=== PATIENT | female | born 1995 | race Caucasian/White ===

== ENCOUNTER 2021-11-28 15:27 | Outpatient (CLI) | payer BC, SELFPAY ==
[2021-11-28 21:46] LABS: HCG Qualitative Serum* Negative (Negative)
== END 2021-11-28 15:28 | disposition home or self-care (01) ==
LOC: FRMREF 15:28
PROVIDERS: PCP Family Medicine; Visit Provider Family Medicine
DX: Z01.419 Encounter for gynecological examination (general) (routine) without abnormal findings (principal); Z30.9 Encounter for contraceptive management, unspecified
CPT/HCPCS: 84703

== ENCOUNTER 2021-11-30 14:50 | Outpatient (CLI) | payer BC, SELFPAY ==
[2021-11-30 21:31] LABS: Chloride* 102 mmol/L (96-114)
[2021-11-30 21:32] LABS: Albumin* 4.8 g/dL (3.3-5.0); Sodium* 139 mmol/L (135-149)
[2021-11-30 21:33] LABS: Potassium* 3.6 mmol/L (3.6-5.1)
[2021-11-30 21:35] LABS: Alanine Aminotransferase* 16 U/L (4-35); Alkaline Phosphatase* 47 U/L (40-150); Aspartate Amino Transferase* 18 U/L (12-35); Bilirubin Total* 0.7 mg/dL (0.1-1.5); Blood Urea Nitrogen* 8 mg/dL (5-24); Calcium* 9.4 mg/dL (8.4-10.6); Carbon Dioxide* 23 mmol/L (20-32); Creatinine* 0.7 mg/dL (0.5-1.5); Estimated Glomerular Filt Rate 123 ml/min; Glucose* 84 mg/dL (60-115); Lipase* 56 U/L (23-300); Total Protein* 7.8 g/dL (6.0-8.3)
[2021-11-30 21:38] LABS: Amphetamine Screen Urine Negative (Negative); Barbiturate Screen Urine Negative (Negative); Benzodiazepines Screen Urine Negative (Negative); Cannabinoid Screen Urine POSITIVE (Negative); Cocaine Screen Urine Negative (Negative); Methadone Screen Urine Negative (Negative); Methamphetamines Screen Urine Negative (Negative); Opiate Screen Urine Negative (Negative); Oxycodone Screen Urine Negative (Negative); Phencyclidine Screen Urine Negative (Negative); Tricyclic Antidepressant Urine Negative (Negative)
== END 2021-11-30 14:51 | disposition home or self-care (01) ==
PROVIDERS: PCP Family Medicine; Visit Provider Family Medicine
DX: R11.2 Nausea with vomiting, unspecified (principal); N64.4 Mastodynia; R53.83 Other fatigue; R42 Dizziness and giddiness; F41.9 Anxiety disorder, unspecified; F32.2 Major depressive disorder, single episode, severe without psychotic features; F12.20 Cannabis dependence, uncomplicated; R35.0 Frequency of micturition; R51.9 Headache, unspecified
CPT/HCPCS: 80053; 80306; 83605; 83690; 87086

== ENCOUNTER 2022-03-09 14:28 | Outpatient (CLI) | payer BC, SELFPAY ==
[2022-03-09 17:48] LABS: Chlamydia DNA Amplified* NOT DETECTED (No Detected); GC DNA Amplified* NOT DETECTED (No Detected)
== END 2022-03-09 14:29 | disposition home or self-care (01) ==
PROVIDERS: PCP Family Medicine; Visit Provider Registered Nurse
DX: R10.2 Pelvic and perineal pain (principal); N39.0 Urinary tract infection, site not specified; Z12.4 Encounter for screening for malignant neoplasm of cervix
CPT/HCPCS: 87086; 87491; 87591